=== PATIENT | female | born 1945 | race Caucasian/White ===

== ENCOUNTER → 2018-06-18 | Outpatient (CLI) | payer MEDICARE ==
[~2018-06-18] MED LIST: AMOXICILLIN500 M1 PO; CLARITIN-D 24 H1 TA1 PO; FLONASE 0.05%50 MCG NASAL; MOTION RELIEF25 MG PO; NOHOMEMEDICATIONS
== END ==
LOC: M.RAD 05-31 14:59
DX: Z12.31 Encounter for screening mammogram for malignant neoplasm of breast (principal); R92.1 Mammographic calcification found on diagnostic imaging of breast; E04.2 Nontoxic multinodular goiter; M85.89 Other specified disorders of bone density and structure, multiple sites; Z88.1 Allergy status to other antibiotic agents

== ENCOUNTER → 2018-06-25 | Outpatient (CLI) | payer MEDICARE | LOC: M.RAD 06-19 08:33 | DX: N64.89 Other specified disorders of breast (principal) ==

== ENCOUNTER → 2018-06-27 | Outpatient (CLI) | payer MEDICARE ==
--- NOTE | 2018-07-01 16:05 | PATH ---
[address] [address] PATHOLOGY RPT PROCEDURE Name: MARY YATES Room: [facility] Reji.#: [id number] Admission: 06/27/18 Date of : 49 Discharge: Report #: [id number] Path Case #: [id number] [facility] Accession Number: [id number] . 01 Material submitted: . breast - LEFT BREAST, 6:00, 4CMFN. Modifiers: left, 6:00 . 01 Clinical history: . 2.53 x 2.24 x 1.99 cm mass . 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 SEE COMMENT. (NAZARIO:pit 07/01/2018) QTP07/01/2018 . 02 Comment: Specimen type: Image guided core biopsies Tumor site: Left breast, 6:00, 4 cm from nipple Tumor quantitation: Approximately 10% of submitted tissues Histologic type: Ductal adenocarcinoma Histologic grade: II Tubules, nuclei and mitoses: 2, 3, 2 LVSI: Not identified Microcalcifications: Identified in invasive tumor and DCIS as well as non-neoplastic breast tissue (medial calcification of blood vessels) Markers: Breast tumor profile pending Block: A1 . . Foci of infiltrating tumor are seen in several cores; however, a relatively much greater proportion of high-grade DCIS is seen, estimated to involve approximately 75% of the submitted tissues and also noted to show "lobular cancerization", suggesting extensive intraductal component. Breast tumor profile studies are pending on A1 and will be the subject of an addendum report. . Reviewed with Dr. Ebony Elliott who agrees with the diagnosis. Flor (acting [facility] Breast Navigator) notified at approximately 1530 on . (NAZARIO:[facility] 07/01/2018) . 02 Electronically signed: . Amos Watkins MD, Pathologist NPI- [id number] . 01 [place] [address] PATHOLOGY RPT PROCEDURE Name: MARY YATES Room: [facility]#: [id number] Admission: 06/27/18 Date of : 49 Discharge: Report #: [id number] Path Case #: [id number] Gross description: . Received in formalin labeled "Mary Yates, left breast BX 6:00 4 cm FN," are multiple needle cores of yellow-gilbert fibrofatty tissue measuring 2.4 x 3.9 x 0.5 cm in aggregate dimensions. The tissue is submitted in its entirety in cassettes A1 through A3. The cold ischemic time is 1 minute. The total formalin fixation time is approximately 29 hours. (TSD; 06/27/2018) TOB/TOB . 02 Pathologist provided ICD-10: C50.912, D05.12 . 02 CPT . 374630 Specimen Comment: A courtesy copy of this report has been sent to Specimen Comment: [phone], , . Specimen Comment: Report sent to ,DR WRIGHT / DR GARCIA Performed at: [address], [place] [address] MD Larry Pritchard MD Phone: [phone] Performed at: 02 [facility] [address], [place], [place] [id number] MD Amos Watkins MD Phone: [phone]
== END | disposition home or self-care (01) ==
LOC: M.ULTRA 12:23
DX: C50.512 Malignant neoplasm of lower-outer quadrant of left female breast (principal); Z88.0 Allergy status to penicillin

== ENCOUNTER → 2018-07-16 | Outpatient (CLI) | payer MEDICARE | LOC: M.LAB 13:30 → M.MRI 14:30 | DX: N60.21 Fibroadenosis of right breast (principal) ==

== ENCOUNTER → 2018-07-19 | Outpatient (CLI) | payer MEDICARE ==
[~2018-07-19] MED LIST changes: +XANAX 0.5 MG0.5 MG PO
--- NOTE | ~2018-07-19 | CON ---
[address] [address] CONSULTATION Name: YATESMARY KAY Room: [facility].#: [id number] Admission: 07/19/18 Attend Phys: Melo Pittman MD Discharge: Date of : 49 Report #: [id number] THIS REPORT FOR: //name// CC: Melo Oden DATE OF SERVICE: 07/19/2018 REFERRING PHYSICIANS: Include Dr. Stephenie Oden, Dr. Seymour Malik, Dr. Dean, and Dr. Galdamez. PRIMARY SITE AND HISTOPATHOLOGY: The patient has at least a high-grade ductal carcinoma in situ, which has an area that is suspicious for microinvasion on core biopsy. HISTORY OF PRESENT ILLNESS: The patient is a 73-year-old woman who had a bilateral mammogram on 06/18/2018, which revealed benign calcifications in the right breast with no mammographic evidence of mass or malignancy. There was a biopsy marker clip present at the inferior portion of the left breast, which was stable since when it was placed in 12/21/2005. There was a stellate density present in the inferior left breast. The patient went on to undergo additional views with the unilateral mammogram in 06/25/2018, which showed a dominant irregular breast lesion highly suggestive of breast neoplasm, nodes at the 6 o'clock position of the left breast. The patient went on to undergo a core biopsy of that area that was performed on 07/01/2018 and the pathology revealed ductal carcinoma in situ, which was grade 3 with comedo and cribriform type spanning at least 1.6 cm suspicious for but not conclusively diagnostic of microinvasion. So far the tumor was estrogen receptor negative and progesterone receptor negative. I do not have the HER2/nguyen result at this point. The patient denied having any palpable mass in that area. She denied having any nipple discharge. The patient did undergo a bilateral MRI in 07/16/2018. In the left breast, the biopsy site was identified with a moderate amount of biopsy hematoma. Just anterior to the marker clip, there was an additional area of malignant type enhancement and indeterminate enhancement that measured 1.5 x 0.4 x 2 cm that likely represent probably residual disease at the anterior margin of the biopsy site. The patient presents to discuss treatment options for her breast cancer. PAST MEDICAL HISTORY AND PAST SURGICAL HISTORY: Includes a hearing loss requiring hearing aids. She had colon polyps found on colonoscopy when she had that performed by Dr. Galdamez. MEDICATIONS: Include Tylenol as needed, Xanax as needed, Advil as needed. ALLERGIES: [place] [address] CONSULTATION Name: MARY YATES Room: [facility]#: [id number] Admission: 07/19/18 Attend Phys: Melo Pittman MD Discharge: Date of : 49 Report #: [id number] GYNECOLOGIC: Menarche at the age of 14, menopause around the age of 58. She is 2, para 2. FAMILY HISTORY: Mother had dementia and paternal uncle had colon cancer. SOCIAL HISTORY: The patient is retired. She had about 2 years of college. Cigarettes: The patient does not smoke cigarettes. Ethanol: She does not drink alcohol containing beverages. REVIEW OF SYSTEMS: GENERAL: The patient denied having any fever or chills. SKIN: She denied having color changes or itching. LYMPH NODES: She denied having enlarged glands in the axilla. ENDOCRINE: The patient denied any hot or cold intolerance. HEMATOLOGY/IMMUNOLOGY: The patient denied any anemia or recent bleeding. MUSCULOSKELETAL: She denied having any significant arthritis, though she has noticed a little bit of arthritis in the ankles. HEAD AND NECK: She has mild tenderness. RESPIRATORY: She denied having shortness of breath. CARDIOVASCULAR: She in the past had a history of palpitations, which resolved. GASTROINTESTINAL: She denied having nausea or vomiting. NEUROLOGIC: She does have some mild neuropathy in her lower extremities. PHYSICAL EXAMINATION: With my nurse, Huma Schultz, present: VITAL SIGNS: Height 5 feet 5-1/2 inches, weight 165.4 pounds, blood pressure 135/74, pulse 80, respirations 16, oxygen saturation was 98% on room air. GENERAL AND PSYCHIATRIC: She was alert, oriented, in no acute distress. LYMPH NODES: She has no palpable cervical, supraclavicular or axillary lymphadenopathy. EYES: Pupils are equal, round, react to light and accommodation. Extraocular movements intact. HEAD, EARS, NOSE AND THROAT: Mouth had no visible lesions. HEART: Had a regular rate and rhythm without murmur. LUNGS: Clear to auscultation. ABDOMEN: Not tender. Spleen was not palpable. Liver was at the costal margin. EXTREMITIES: Had no clubbing, cyanosis or edema. BREASTS: The left breast had about 1 cm seroma around the biopsy site. There were suspicious palpable masses involving the left breast. There were no suspicious palpable masses involving the right breast. ASSESSMENT AND PLAN: The patient has at least a high-grade ductal carcinoma in situ of the left breast, may be possible microinvasion and hopefully at the time of lumpectomy that would be more apparent which type its. Appears to be at least estrogen receptor negative, progesterone receptor negative. She was told that in NSABP B-17, they randomized the patients with ductal carcinoma in situ with 2 lumpectomy alone versus lumpectomy and radiation therapy. [place] 19 [place] [address] CONSULTATION Name: MARY YATES Room: [facility].#: [id number] Admission: 07/19/18 Attend Phys: Melo Pittman MD Discharge: Date of : 49 Report #: [id number] followup, the total local failure rate was 35% without radiation therapy and 19.8% with radiation therapy. In terms of the 8-year update of that study, the high-grade recurrence of ipsilateral breast recurrence rate with high-grade ductal carcinoma in situ was 39% that was reduced to 14% with radiation therapy. So the risks, benefits, logistics of radiation therapy were explained to the patient in detail. She gave her witnessed, informed consent to proceed with radiation therapy. She was leaning towards breast conservation therapy. She understood she had the option of breast conservation therapy versus mastectomy. She said she will be scheduled for lumpectomy in the next few weeks. Simulation will tentatively be scheduled towards the mid to end August and it will be ordered, so it can be scheduled around mid to end in August. The patient can possibly commence radiation therapy at that time depending partly on what her final pathology shows after her lumpectomy. Thank you so much for this consult. By: 1729 143MD dianne Arevalo
== END ==
LOC: M.RTH 05:02
DX: D05.12 Intraductal carcinoma in situ of left breast (principal); Z80.0 Family history of malignant neoplasm of digestive organs; Z78.0 Asymptomatic menopausal state

== ENCOUNTER → 2018-08-07 | Day surgery (SDC) | payer MEDICARE ==
[2018-08-07 10:41] LABS: HEMATOCRIT 38.8 % (37.0-47.0); HEMOGLOBIN 12.9 gm/dL (12.0-15.0); MCH 28.7 pg (26.0-34.0); MCHC 33.3 g/dL (28.0-37.0); MCV 86.3 fL (80.0-100.0); MPV 7.5 fl. (7.2-11.1); RBC 4.5 mil/uL (4.20-5.00); WBC 6.3 thou/uL (4.0-11.0)
[2018-08-07 10:58] LABS: CALCIUM 9.4 mg/dL (8.5-10.1); CREATININE 1.1 mg/dL (0.6-1.3); POTASSIUM 4.1 mmol/L (3.5-5.1)
[2018-08-07 11:03] LABS: ALBUMIN 3.6 g/dL (3.4-5.0); TOTAL BILIRUBIN 0.4 mg/dL (<0.1-1.0); TOTAL PROTEIN 7.1 g/dL (6.4-8.2)
--- NOTE | 2018-08-07 13:26 | EKG ---
[place] [address] ELECTROCARDIOGRAM REPORT Name: MARY YATES Room: [facility]#: [id number] Admission: 08/07/18 Attend Phys: Molly Dean DO Discharge: Date of : 49 Report #: [id number] THIS REPORT FOR: //name// [facility] Test Date: 2018-08-07 Test Time: 10:42:15 Pat Name: MARY YATES Department: Room: Gender: Golf Professional: : 1945 Requested By: Molly Dean Order Number: [id number] iHlton MD: Panfilo Atwood Measurements Intervals Taylor Rate: 70 P: 51 [place]: 144 QRS: 63 QRSD: 97 T: 35 QT: 386 QTc: 417 Interpretive Statements Sinus rhythm Compared to ECG 07/15/2012 16:54:15 No significant changes Electronically Signed On 08-07-2018 13:25:54 CDT by Panfilo Atwood [email or web address] <ELECTRONICALLY SIGNED> By: Panfilo Atwood MD, [facility] 08/07/18 1325 1042 41 Panfilo Atwood MD, FACC /EPI
--- NOTE | 2018-08-13 08:53 | OP ---
[address] [address] OPERATIVE REPORT Name: MILANMARY TOUSSAINT Room: [facility].#: [id number] Admission: 08/07/18 Attend Phys: Molly Dean DO Discharge: Date of : 49 Report #: [id number] THIS REPORT FOR: //name// CC: Molly Oden DATE OF SERVICE: 08/07/2018 PREPROCEDURE DIAGNOSIS: Left breast cancer. POSTPROCEDURE DIAGNOSIS: Left breast cancer. FINDINGS: Left breast wire localization x 2 and left breast nuclear medicine injection. SURGEON: Molly Dean DO PERIOPERATIVE NURSE: Claude Chavez, PGY-2 PROCEDURE PERFORMED: Left breast wire localized lumpectomy with left superficial sentinel lymph node dissection. ANESTHESIA: LMA and local. ESTIMATED BLOOD LOSS: 10. DRAINS: None. SPECIMENS: Left breast lumpectomy and left superficial sentinel lymph node. COMPLICATIONS: None. CONDITION: Stable. DISPOSITION: PACU to home. HISTORY OF PRESENT ILLNESS: The patient is a very pleasant 73-year-old female, who presented to my office after having a change in her mammogram. She underwent left breast ultrasound-guided biopsy, which unfortunately had an unclear pathology. Multiple pathologists did review the specimen and the final diagnosis was made as DCIS with features of invasive carcinoma. The patient was seen by Oncology and Radiation Oncology and underwent an MRI. After complete workup, the patient decided to move forward with a left breast lumpectomy and a left sentinel lymph node dissection. Risks discussed included bleeding; infection; pain; scar formation; need for further surgery; injury to vein, artery or nerve causing chronic pain; numbness or swelling and risks of general [address] [address] OPERATIVE REPORT Name: MARY YATES Room: [facility].#: [id number] Admission: 08/07/18 Attend Phys: Molly Dean DO Discharge: Date of : 49 Report #: [id number] anesthesia. The patient understood these risks and elected to proceed. PROCEDURE NOTE: The patient initially presented to preop and was taken to radiology where she underwent a left breast wire localization x 2 and a left breast nuclear medicine injection. She returned to preop where she underwent informed consent. She was then taken to the OR where she was laid supine on the operating room table. SCDs were placed on bilateral lower extremities. Clindamycin was given in the perioperative period. General LMA anesthesia was induced by anesthesia without difficulty. A 5 mL of Lymphazurin blue dye were injected in the periareolar area. Left breast was then prepped and draped in the standard sterile fashion. Timeout was performed to verify patient and procedure. Tips of the wires were palpated and marked. A 10 mL of 0.5% Marcaine were injected in the lower quadrant of the left breast. Incision was made with a 10 blade. Cautery was used for hemostasis. Then, using the wires for guidance, a left breast lumpectomy was created. There was an area of firm induration towards tips of the wires. I attempted to include all of this in my lumpectomy specimen. Specimen was then marked in the superior and lateral direction and was returned to mammography. Dr. Carbone did return a phone call indicating that we had obtained both of the clips and that the specimen appeared to be adequate. Hemostasis was assured within the cavity. Cavity was copiously irrigated. Cavity was then gently packed with a Ray-Maureen while I turned my attention to the sentinel lymph node dissection. Neoprobe was brought on to the field and the nipple was interrogated. The highest uptake was approximately 4600. Axilla was then also interrogated and the area of the highest uptake was marked. A 10 mL of 0.5% Marcaine were injected in the area of the planned incision. Incision was made with a 10 blade. Cautery was used for hemostasis. Weitlaner retractor was placed within the wound. Then, using the Neoprobe and the blue dye for guidance, I dissected gently down into the axillary fat pad. Clavipectoral fascia was identified and was gently incised using cautery. Just deep to the fascia, strong blue line of dye was identified which tracked directly to a large blue lymph node. This revealed an uptake of approximately 500 on the Neoprobe. The area was gently grasped using an Allis clamp and was dissected free from the surrounding tissue using a combination of blunt and cautery dissection. Once removed from the axilla, we had an uptake on the left sentinel lymph node of 1049. This was then handed off as our left superficial sentinel lymph node. Neoprobe was returned into the axilla and there was 0 further uptake. Axilla was then also copiously irrigated until clear. Hemostasis was assured. Rafat was sprinkled between the axilla and the lumpectomy cavity. Both cavities were then closed in a layered fashion using deep and superficial stitches of 3-0 Vicryl in the inverted interrupted fashion. Skin wounds were closed with running 4-0 Monocryl. A total of 30 mL of 0.5% Marcaine were used to anesthetize the wounds. Wounds were then cleansed and covered with Mastisol, Steri-Strips, 4 x 4's, and a Tegaderm. The patient was then allowed to awaken from anesthesia, was [place]ub[place] [address] OPERATIVE REPORT Name: MARY YATES NORBERT Room: [facility].#: [id number] Admission: 08/07/18 Attend Phys: Molly Dean DO Discharge: Date of : 49 Report #: [id number] recovery room with no further difficulties. Counts were correct x 2 at the conclusion of the case. <ELECTRONICALLY SIGNED> By: Molly Dean DO 08/13/18 0853 1520 1630Chkailyn Dean DO /nt
== END | disposition home or self-care (01) ==
LOC: M.SUR 09:50 → M.RAD 11:00 → M.SUR 11:00 → EDSTATUS 11:00 → M.NUC 12:00
PROVIDERS: Surgery
DX: C50.912 Malignant neoplasm of unspecified site of left female breast (principal); Z88.8 Allergy status to other drugs, medicaments and biological substances; Z79.899 Other long term (current) drug therapy

== ENCOUNTER → 2018-09-03 | Day surgery (SDC) | payer MEDICARE ==
--- NOTE | 2018-09-03 09:34 | OP ---
[address] [address] OPERATIVE REPORT Name: MILANMARY TOUSSAINT Room: [facility].#: [id number] Admission: 09/03/18 Attend Phys: Molly Eldridge DO Discharge: Date of : 49 Report #: [id number] THIS REPORT FOR: //name// CC: Molly Oden DATE OF SERVICE: 09/03/2018 PREPROCEDURE DIAGNOSIS: Lobular carcinoma with a positive superior margin. POSTOPERATIVE DIAGNOSIS: Lobular carcinoma with a positive superior margin. FINDINGS: Previous left breast lumpectomy. SURGEON: MOLLY ELDRIDGE DO COSURGEON: Xiomy Reinoso, PGY-1 GEOPHYSICAL MANAGER: Dex Medina, PGY-2. PROCEDURE PERFORMED: Left breast reexcision for margin. ANESTHESIA: LMA and local. ESTIMATED BLOOD LOSS: 5 mL. DRAINS: None. SPECIMENS: Superior margin. COMPLICATIONS: None. CONDITION: Stable. DISPOSITION: PACU to home. HISTORY OF PRESENT ILLNESS: The patient is a very roxy 73-year-old female who presented to my office with a change in her mammogram. She underwent an ultrasound-guided biopsy, which revealed a ductal carcinoma in situ. She then underwent a wire localized lumpectomy for the ductal carcinoma with a surprise finding on her pathology of 2 separate invasive cancers, the second of which we were unaware. This was a lobular carcinoma, which was found on the superior aspect of the lumpectomy and we did have a positive margin. She was seen by Oncology and by myself. We presented her with all options including reexcision for margin or mastectomy. It was discussed with her that lobular carcinoma can be much larger [address] [address] OPERATIVE REPORT Name: MILANMARY KAY Room: [facility]#: [id number] Admission: 09/03/18 Attend Phys: Molly Eldridge DO Discharge: Date of : 49 Report #: [id number] than on first appearance, so the reexcision for margin may not be successful. After discussion with Oncology and family, she decided to proceed with the reexcision for margin. Risks discussed included bleeding, infection, pain, scar formation, deformation of the breast. A continued positive margins requiring further surgery and risks of general anesthesia. The patient understood these risks and elected to proceed. DESCRIPTION OF PROCEDURE: The patient was brought to the operating room. She was laid supine on the operating room table. SCDs were placed on bilateral lower extremities. Clindamycin was given in the perioperative period. General LMA anesthesia was induced by anesthesia without difficulty. The left breast was prepped and draped in the standard sterile fashion. Timeout was performed to verify patient and procedure, 20 mL of 0.5% Marcaine were injected in the area of our previous incision. Incision was reopened with a #15 blade. Incision was also extended for several centimeters towards the mid portion of the breast. Cautery was used for hemostasis. The previous incision was completely opened gently using a Victoria clamp and previous stitches were removed. A small seroma was identified and was suctioned away. At this point, we could clearly visualize the entirety of the superior margin. Adson's were used to gently elevate the skin. The anterior portion of the superior margin was dissected free from the underlying skin. This did very closely approximate the nipple. At the area of the nipple itself, Metzenbaums were used to excise the tissue from the nipple. The entirety of the superior margin was then excised utilizing cautery. It was marked in the superior and lateral direction and handed off for permanent pathology. Of note, no mass or suspicious tissue was identified. Hemostasis was assured within the cavity. Cavity was copiously irrigated. Rafat was then introduced into the cavity. Wound was then closed in a layered fashion using deep and superficial stitches of 3-0 Vicryl in inverted interrupted fashion. Skin wound was closed with a running 4-0 Monocryl. A total of 30 mL of 0.5% Marcaine were used to anesthetize the wound. Wound was then cleansed and covered with Mastisol, Steri-Strips, 4 x 4's, and a Tegaderm. The patient was then allowed to awake from anesthesia, was extubated and transported to the recovery room with no further difficulties. Counts were correct x 2 at the conclusion of the case. <ELECTRONICALLY SIGNED> By: Molly Eldridge DO 09/03/18 0934 0909 0931Molly Eldridge DO /jerrod
--- NOTE | 2018-09-18 12:51 | PATH ---
[address] [address] PATHOLOGY RPT PROCEDURE Name: MARY YATES Room: [facility].#: [id number] Admission: 09/03/18 Date of : 49 Discharge: Report #: [id number] Path Case #: [id number] [facility] Accession Number: [id number] . 01 Material submitted: . breast - LEFT BREAST SUPERIOR MARGIN. Modifiers: left . 01 Clinical history: . Left breast ductal carcinoma in situ, invasive ductal carcinoma, left breast. Long suture is lateral, short suture is superior. . 02 Diagnosis: LEFT BREAST SUPERIOR MARGIN: - SINGLE FOCUS OF RESIDUAL DUCTAL CARCINOMA IN SITU, NUCLEAR GRADE 3, CRIBRIFORM TYPE, SPANNING LESS THAN 1 MM, LOCATED ADJACENT TO PRIOR SURGICAL CHANGES (1 MM AWAY FROM GREEN INKED INFERIOR SURFACE), WITH ALL SURGICAL MARGINS FREE OF INVOLVEMENT AND CLOSEST (SUPERIOR) LOCATED 10 MM AWAY. - No residual invasive neoplasm. - Florid usual ductal epithelial hyperplasia, focal sclerosing adenosis, cystic apocrine changes, ductal papilloma, small fibroadenoma and scattered luminal calcifications. - See comment. LBMarialuisa/09/05/2018 . 02 Comment: There is no residual invasive neoplasm (ductal and lobular) identified in the entirely submitted specimen and only a single minute focus of high grade DCIS is seen in A24. (NAZARIO/db; 09/05/2018) . 02 Electronically signed: . Amos Watkins MD, Pathologist NPI- [id number] . 01 Gross description: . The specimen is received in formalin, labeled "Mary Yates, left breast superior margins", is a 46 g, oriented, fibroadipose tissue with sutures: Short = superior and long = lateral. The specimen measures: Medial to lateral = 7.0 cm, anterior to posterior = 6.5 cm and superior to inferior = 1.7 cm in. The inferior margin is covered by a thin zaldivar yellow membrane. The specimen is inked as follows: Superior = red, inferior = green, medial = orange, lateral = yellow, superficial = blue and deep = black. The specimen is a serially sectioned from medial to lateral into 15 slices. (Slice #1 = medial and slice #15 = lateral margins) to reveal a predominantly yellow lobulated glistening fatty cut surface with gilbert-white fibrous strands interspersed in the ratio 90:10. The specimen is entirely submitted as follows: [place] [address] PATHOLOGY RPT PROCEDURE Name: MARY YATES Room: [facility]#: [id number] Admission: 09/03/18 Date of : 49 Discharge: Report #: [id number] Path Case #: [id number] A1-A2. Slice #1, medial margin, perpendicular sectioned. A3. Slice #2. A4-A5. Slice #3, bisected. A6-A7. Slice 4, bisected. A8-A10. Slice #5, trisected. A11-A13. Slice #6, trisected. A14-A16. Slice #7, trisected. A17-A19. Slice #8, trisected. A20-A22. Slice # 9, trisected. A23-A25. Slice #10, trisected. A26-A28. Slice # 11, trisected. A29-A31. Slice # 12, trisected. A32-A34. Slice # 13, trisected. A35-A37. Slice # 14, trisected. A38-A39. Slice #15, lateral margin, perpendicular sectioned. . Specimen excised at: 0833 on 09/03/18, placed in formalin at: 0837 on 09/03/18, formalin exposure: Approximately 39 hours. ([facility]; 09/04/2018) SHS/ . 02 Pathologist provided ICD-10: D05.12, N62, N60.22, D24.2 . 02 CPT . 209368 Specimen Comment: A courtesy copy of this report has been sent to Specimen Comment: [phone], . Specimen Comment: Report sent to / DR GARCIA Specimen Comment: A duplicate report has been generated due to demographic updates. Performed at: 01 [facility] [address] [place] [address] [address], [place], [place] [id number] MD Larry Pritchard MD Phone: [phone] Performed at: [address] [facility] [address] [id number] MD Amos Watkins MD Phone: [phone]
== END | disposition home or self-care (01) ==
LOC: M.SUR 06:00
DX: D05.12 Intraductal carcinoma in situ of left breast (principal); D24.2 Benign neoplasm of left breast; N60.82 Other benign mammary dysplasias of left breast; N60.22 Fibroadenosis of left breast; R92.1 Mammographic calcification found on diagnostic imaging of breast; Z88.8 Allergy status to other drugs, medicaments and biological substances; Z86.010 Personal history of colon polyps; Z80.0 Family history of malignant neoplasm of digestive organs; Z79.899 Other long term (current) drug therapy; Z98.890 Other specified postprocedural states

== ENCOUNTER → 2019-07-07 | Outpatient (CLI) | payer MEDICARE | LOC: M.RAD 12:58 | DX: D05.12 Intraductal carcinoma in situ of left breast (principal); N64.89 Other specified disorders of breast ==

== ENCOUNTER → 2020-01-26 | Outpatient (CLI) | payer MEDICARE | LOC: M.RAD 10:59 | PROVIDERS: ATTEND Internal Medicine | DX: J43.9 Emphysema, unspecified (principal) ==

== ENCOUNTER → 2020-02-03 | Outpatient (CLI) | payer MEDICARE | LOC: M.PUL 01-29 11:52 | PROVIDERS: ATTEND Internal Medicine | DX: M41.85 Other forms of scoliosis, thoracolumbar region (principal); I25.10 Atherosclerotic heart disease of native coronary artery without angina pectoris; C50.912 Malignant neoplasm of unspecified site of left female breast; R05 Cough ==

== ENCOUNTER → 2020-05-19 | Outpatient (CLI) | payer MEDICARE | LOC: M.CT 05-17 11:00 | PROVIDERS: ATTEND Internal Medicine Critical Care Medicine | DX: R91.8 Other nonspecific abnormal finding of lung field (principal); M41.84 Other forms of scoliosis, thoracic region; E04.1 Nontoxic single thyroid nodule; K44.9 Diaphragmatic hernia without obstruction or gangrene ==

== ENCOUNTER → 2020-07-05 | Outpatient (CLI) | payer MEDICARE | LOC: M.ULTRA 15:59 | PROVIDERS: ATTEND Internal Medicine | DX: M25.562 Pain in left knee (principal); M79.89 Other specified soft tissue disorders ==

== ENCOUNTER → 2020-07-12 | Outpatient (CLI) | payer MEDICARE | LOC: M.RAD 11:30 | PROVIDERS: ATTEND Radiology Radiation Oncology | DX: D05.12 Intraductal carcinoma in situ of left breast (principal); R92.2 Inconclusive mammogram ==

== ENCOUNTER → 2020-10-28 | Outpatient (CLI) | payer MEDICARE | LOC: M.RAD 10-27 09:00 | PROVIDERS: ATTEND Internal Medicine Hematology & Oncology | DX: M81.0 Age-related osteoporosis without current pathological fracture (principal); Z79.811 Long term (current) use of aromatase inhibitors; Z78.0 Asymptomatic menopausal state ==